=== PATIENT | female | born 1935 | race Caucasian/White ===

== ENCOUNTER 2021-04-28 13:49 | Observation (INO) | payer MEDICARE ==
[~2021-04-28] VITALS: Ht 157.5 cm; Wt 97.9 kg
[~2021-04-28 13:49] MED LIST: ADULT ASPIRIN L81 MG PO; ALIGN4 MG PO; ALLOPURINOL300 MG PO; ALTACE5 MG OR; ALTACE5 MG PO; AMLODIPINE2.5 MG PO; ANTARA130 MG PO; ASPIRIN OR; ATACAND32 MG OR; B-12500 MCG PO; BABY ASPIRIN81 MG OR; BENTYL10 MG PO; BUTALBITAL OR; CAFFEINE OR; CARVEDILOL25 MG PO; CIPROFLOXACN500 MG PO; COQ-10200 MG PO; D31000 UNIT PO; DETROL LA4 MG PO; DIGITEK0.125 MG PO; DITROPAN PO; DUONEB IN; FENOFIBRATE134 MG PO; FLUTICASONE50 MCG; FUROSEMIDE20 MG PO; FUROSEMIDE40 MG PO; GABAPENTIN300 MG PO; GLIPIZIDE5 M1 PO; GLIPIZIDE5 M2 PO; GLIPIZIDE5 MG PO; ICAPS PO; K2 PLUS D31 TAB PO; KLOR-CON 1010 ME1 PO; KLOR-CON 1010 MEQ OR; LANOXIN0.125 MG OR; LANOXIN0.125 MG PO; LASIX20 MG OR; LASIX40 MG PO; LASIX80 MG OR; LEVOTHYROXIN50 MCG PO; LEVOTHYROXIN75 MCG PO; LEVOTHYROXIN88 MC1 PO; LOPRESSOR50 M1 PO; MEDDOSEPAK PO; METAN3 PO; METO100T50 PO; METOPROL TAR50 MG PO; MICRO-K10 ME1 PO; MILK OF MAG2 OR; PEXEVA20 MG OR; POT CL MICRO20 MEQ PO; PREDNISONE10 MG OR; PRILOSEC20 MG PO; PROBIOTIC1 TAB PO; PROTONIX40 MG OR; RAMIPRIL2.5 MG PO; RYBIX ODT50 MG PO; SEPTRA DS1 TAB OR; SG ASA LOW81 MG PO; SURFAK240 MG OR; SYNTHROID100 MCG PO; SYNTHROID50 MCG OR; SYNTHROID75 MCG PO; TOPROL XL OR; TOPROL XL50 MG OR; TRICOR145 MG OR; TRICOR145 MG PO; TYLENOL325 MG PO; VITAMIN D1000 UNIT PO; [UNRECOGNIZED DRUG - CODE] RE; [UNRECOGNIZED DRUG - OTHER] PO
[2021-04-28 14:35] LABS: HEMATOCRIT 49.3 % (37.0-47.0); HEMOGLOBIN 14.7 g/dl (12.0-16.0); IMMATURE GRANULOCYTES 0.3 % (0.0-5.0); MEAN CELL VOLUME 105.3 fL CALC (80.0-100.0); MEAN CORPUSCULAR HGB 31.4 pG CALC (26.0-32.0); MEAN CORPUSCULAR HGB CONC 29.8 g/dL CAL (32.0-36.0); NEUT# 9.68 thou/uL (2.00-7.15); RED BLOOD COUNT 4.68 mill/uL (4.20-5.60); RED CELL DISTRI WIDTH 15.4 % (11.5-15.5)
[2021-04-28 14:48] LABS: INTERNATIONAL NORMALIZED RATIO 1.2 RATIO (0.7-1.3)
[2021-04-28 14:50] LABS: ALBUMIN 3.8 g/dL (3.2-5.0); ALKALINE PHOSPHATASE 69 u/l (38-126); ANION GAP 13 (6-22 (CALC)); BILIRUBIN, TOTAL 1.3 mg/dL (0.0-1.4); BUN 49 mg/dL (8-23); BUN/CREATININE RATIO 28 (12-20 (CALC)); CARBON DIOXIDE 27 mmol/l (22-30); CHLORIDE 110 mmol/l (95-108); CREATININE 1.8 mg/dL (0.5-1.0); GFR 27 ML/MIN (>=60 (CALC)); GFR FOR AFR.AMER. 32 ML/MIN (>=60 (CALC)); POTASSIUM 4.1 mmol/l (3.5-5.1); SGOT/AST 22 u/l (9-36); SODIUM 146 mmol/l (137-146); TOTAL PROTEIN 6.7 g/dL (6.3-8.2)
[2021-04-28 14:52] LABS: PROTHROMBIN TIME 12.4 SECONDS (9.0-12.5)
[2021-04-28] MEDS ORDERED: LEVOTHYROXIN100 MCG PO (16:50)
[2021-04-28] MEDS ORDERED: FUROSEMIDE20 MG PO (16:51)
[2021-04-28] MEDS ORDERED: ALLOPURINOL100 MG PO (16:53)
[2021-04-28] MEDS ORDERED: CARVEDILOL25 MG PO (16:54)
[2021-04-28] MEDS ORDERED: ENTRESTO 24-261 TAB PO (16:56)
[2021-04-28] MEDS ORDERED: SILVADENE1 % EX (16:58)
[2021-04-28] MEDS ORDERED: BUMETANIDE1 MG PO (17:00)
[2021-04-28 17:45] VITALS: BP 113/72
[2021-04-28 18:00] VITALS: BP 131/92
[2021-04-28 19:00] VITALS: BP 125/76
[2021-04-28 22:00] VITALS: BP 116/59
[2021-04-28 23:43] LABS: URINE BILIRUBIN - DIPSTICK NEGATIVE (NEGATIVE); URINE BLOOD DIPSTICK MODERATE (NEGATIVE); URINE COLOR YELLOW; URINE GLUCOSE - DIPSTICK NEGATIVE (NEGATIVE); URINE KETONE NEGATIVE (NEGATIVE); URINE LEUK ESTERASE NEGATIVE (NEGATIVE); URINE PROTEIN - DIPSTICK NEGATIVE (NEG-TRACE); URINE UROBILINOGEN - DIPSTICK 0.2 E.U./dL (0.2)
[2021-04-28 23:45] LABS: URINE NITRITE - DIPSTICK POSITIVE (Negative)
[2021-04-28 23:50] LABS: URINE BACTERIA MANY hpf; URINE SQUAMOUS EPITHELIAL CELL FEW EPI/hpf (0-FEW)
[2021-04-29] VITALS (10 sets, daily range): BP systolic 86–145; BP diastolic 46–86
[2021-04-29 05:40] LABS: HEMOGLOBIN 13.7 g/dl (12.0-16.0); MEAN CELL VOLUME 100.5 fL CALC (80.0-100.0); MEAN CORPUSCULAR HGB 31.8 pG CALC (26.0-32.0); MEAN CORPUSCULAR HGB CONC 31.6 g/dL CAL (32.0-36.0); RED BLOOD COUNT 4.31 mill/uL (4.20-5.60); RED CELL DISTRI WIDTH 15.4 % (11.5-15.5)
[2021-04-29 05:45] LABS: HEMATOCRIT 43.3 % (37.0-47.0)
[2021-04-29 06:01] LABS: CREATININE 1.6 mg/dL (0.5-1.0); MAGNESIUM 2.2 mg/dL (1.6-2.3); POTASSIUM 4.8 mmol/l (3.5-5.1)
[2021-04-30 00:07] VITALS: BP 140/73
[2021-04-30 04:00] VITALS: BP 130/76
[2021-04-30 05:20] LABS: HEMATOCRIT 44.3 % (37.0-47.0); HEMOGLOBIN 13.6 g/dl (12.0-16.0); MEAN CELL VOLUME 102.3 fL CALC (80.0-100.0); MEAN CORPUSCULAR HGB 31.4 pG CALC (26.0-32.0); MEAN CORPUSCULAR HGB CONC 30.7 g/dL CAL (32.0-36.0); RED BLOOD COUNT 4.33 mill/uL (4.20-5.60); RED CELL DISTRI WIDTH 15.3 % (11.5-15.5)
[2021-04-30 05:37] LABS: CREATININE 1.8 mg/dL (0.5-1.0); MAGNESIUM 2.2 mg/dL (1.6-2.3)
[2021-04-30 05:46] LABS: POTASSIUM 3.6 mmol/l (3.5-5.1)
[2021-04-30 07:53] VITALS: BP 139/78
[2021-04-30 10:45] VITALS: BP 135/40
[2021-04-30 15:00] VITALS: BP 129/80
[2021-04-30 19:00] VITALS: BP 132/83
[2021-05-01] VITALS: BP 131/86
[2021-05-01 04:00] VITALS: BP 127/82
[2021-05-01 05:54] LABS: HEMATOCRIT 45.8 % (37.0-47.0); HEMOGLOBIN 13.8 g/dl (12.0-16.0); MEAN CELL VOLUME 103.9 fL CALC (80.0-100.0); MEAN CORPUSCULAR HGB 31.3 pG CALC (26.0-32.0); MEAN CORPUSCULAR HGB CONC 30.1 g/dL CAL (32.0-36.0); RED BLOOD COUNT 4.41 mill/uL (4.20-5.60)
[2021-05-01 06:14] LABS: CREATININE 1.6 mg/dL (0.5-1.0)
[2021-05-01 08:43] VITALS: BP 115/80
[2021-05-01 10:33] VITALS: BP 115/80
[2021-05-01] MEDS ORDERED: CIPROFLOXACIN250 MG PO (12:20)
[2021-05-01] MEDS ORDERED: BUMETANIDE1 MG PO (12:21)
[2021-05-01 14:17] VITALS: BP 121/80
== END 2021-05-01 13:59 | disposition home health service (06) ==
LOC: ED 13:49 → ED-I 14:30 → ED 14:30 → ED-I 14:40 → ED 16:04 → MS2 16:05 → ICU 16:05 → MS2 04-29 14:02
PROVIDERS: Family Medicine; Nurse Practitioner; ADMIT Hospitalist; ATTEND Hospitalist
PROC: 5A09357 Assistance with Respiratory Ventilation, Less than 24 Consecutive Hours, Continuous Positive Airway Pressure (ICD-10-PCS; principal; 2021-04-28)
DX: I13.0 Hypertensive heart and chronic kidney disease with heart failure and stage 1 through stage 4 chronic kidney disease, or unspecified chronic kidney disease (principal); I50.9 Heart failure, unspecified; J96.01 Acute respiratory failure with hypoxia; E11.22 Type 2 diabetes mellitus with diabetic chronic kidney disease; N18.30 Chronic kidney disease, stage 3 unspecified; N39.0 Urinary tract infection, site not specified; E03.9 Hypothyroidism, unspecified; E66.9 Obesity, unspecified; B96.5 Pseudomonas (aeruginosa) (mallei) (pseudomallei) as the cause of diseases classified elsewhere; Z68.35 Body mass index [BMI] 35.0-35.9, adult; Z20.822 Contact with and (suspected) exposure to COVID-19; Z87.440 Personal history of urinary (tract) infections
CPT/HCPCS: G0378

== ENCOUNTER 2021-08-21 09:13 | Observation (INO) | payer MEDICARE ==
[~2021-08-21] VITALS: Ht 157.5 cm; Wt 88.0 kg
[2021-08-21] VITALS (15 sets, daily range): BP systolic 92–168; BP diastolic 50–95
[~2021-08-21 09:13] MED LIST changes: +ALLOPURINOL100 MG PO; +BUMETANIDE1 MG PO; +CIPROFLOXACIN250 MG PO; +ENTRESTO 24-261 TAB PO; +LEVOTHYROXIN100 MCG PO; +SILVADENE1 % EX
[2021-08-21 10:37] LABS: HEMATOCRIT 43.8 % (37.0-47.0); HEMOGLOBIN 13.8 g/dl (12.0-16.0); IMMATURE GRANULOCYTES 0.6 % (0.0-5.0); MEAN CELL VOLUME 100.5 fL CALC (80.0-100.0); MEAN CORPUSCULAR HGB 31.7 pG CALC (26.0-32.0); MEAN CORPUSCULAR HGB CONC 31.5 g/dL CAL (32.0-36.0); NEUT# 8.48 thou/uL (2.00-7.15); RED BLOOD COUNT 4.36 mill/uL (4.20-5.60); RED CELL DISTRI WIDTH 16.5 % (11.5-15.5)
[2021-08-21 10:57] LABS: ALBUMIN 3.5 g/dL (3.2-5.0); ALKALINE PHOSPHATASE 71 u/l (38-126); BILIRUBIN, TOTAL 1.6 mg/dL (0.0-1.4); CHLORIDE 103 mmol/l (95-108); LIPASE 24 u/l (23-300); MAGNESIUM 2.6 mg/dL (1.6-2.3); SGOT/AST 18 u/l (9-36); TOTAL PROTEIN 6.6 g/dL (6.3-8.2)
[2021-08-21 11:00] LABS: ANION GAP 16 (6-22 (CALC)); BUN 77 mg/dL (8-23); BUN/CREATININE RATIO 29 (12-20 (CALC)); CARBON DIOXIDE 24 mmol/l (22-30); CPK < 20 u/l (30-165); CREATININE 2.7 mg/dL (0.5-1.0); GFR 17 ML/MIN (>=60 (CALC)); GFR FOR AFR.AMER. 20 ML/MIN (>=60 (CALC)); POTASSIUM 5.8 mmol/l (3.5-5.1); SODIUM 137 mmol/l (137-146)
[2021-08-21] MEDS ORDERED: VITAMIN D31000 UNI1 PO (14:04)
[2021-08-21] MEDS ORDERED: BUMETANIDE1 MG PO (14:05)
[2021-08-21] MEDS ORDERED: SPIRONOLACTONE25 MG PO (14:06)
[2021-08-21] MEDS ORDERED: POTASSIUM CHLO10 MEQ PO (14:38)
[2021-08-21] MEDS ORDERED: ENTRESTO 24-261 TAB PO (14:44)
[2021-08-22 03:28] VITALS: BP 140/90
[2021-08-22 05:51] LABS: HEMATOCRIT 47.3 % (37.0-47.0); HEMOGLOBIN 14.8 g/dl (12.0-16.0); MEAN CELL VOLUME 102.8 fL CALC (80.0-100.0); MEAN CORPUSCULAR HGB 32.2 pG CALC (26.0-32.0); MEAN CORPUSCULAR HGB CONC 31.3 g/dL CAL (32.0-36.0); RED BLOOD COUNT 4.6 mill/uL (4.20-5.60); RED CELL DISTRI WIDTH 16.6 % (11.5-15.5)
[2021-08-22 06:45] LABS: CREATININE 2.6 mg/dL (0.5-1.0); MAGNESIUM 2.5 mg/dL (1.6-2.3)
[2021-08-22 07:25] VITALS: BP 108/73
== END 2021-08-22 13:53 | disposition hospice, inpatient (51) ==
LOC: ED 09:13 → ED-I 13:15 → ED 13:33 → MS2 13:34 → ICU 08-22 03:33
PROVIDERS: Internal Medicine; ADMIT Hospitalist; ATTEND Hospitalist
PROC: 5A09357 Assistance with Respiratory Ventilation, Less than 24 Consecutive Hours, Continuous Positive Airway Pressure (ICD-10-PCS; principal; 2021-08-22)
DX: I13.0 Hypertensive heart and chronic kidney disease with heart failure and stage 1 through stage 4 chronic kidney disease, or unspecified chronic kidney disease (principal); I50.9 Heart failure, unspecified; R19.7 Diarrhea, unspecified; E86.0 Dehydration; N17.9 Acute kidney failure, unspecified; R09.02 Hypoxemia; I48.91 Unspecified atrial fibrillation; E11.22 Type 2 diabetes mellitus with diabetic chronic kidney disease; N18.4 Chronic kidney disease, stage 4 (severe); F03.90 Unspecified dementia, unspecified severity, without behavioral disturbance, psychotic disturbance, mood disturbance, and anxiety; Z87.440 Personal history of urinary (tract) infections; Z51.5 Encounter for palliative care; Z66 Do not resuscitate; Z91.19 Patient's noncompliance with other medical treatment and regimen; Z20.822 Contact with and (suspected) exposure to COVID-19
CPT/HCPCS: J2060